=== PATIENT | male | born 1960 | race Caucasian/White ===

== ENCOUNTER 2024-11-17 19:30 | Emergency (ER) | payer MEDICARE, SELFPAY ==
[2024-11-17 19:48] VITALS: BP 170/91; PULSE 74; TEMP 36.7; O2SAT 97; BMI 37.5
--- NOTE | 2024-11-17 19:59 | XR_ITS ---
The [address] [address] Patient Name: LAM DREW MRN: [id number] date: 1960 Sex: M Assigned Patient Location: ER Current Patient Location: ED.MAIN Accession/Order Number: [id number] Exam Date: 11/17/2024 20:20 Report Date: 11/17/2024 20:49 At the request of: STEPHEN KAT Procedure: XR abdomen 1V EXAM: XR abdomen 1V TECHNIQUE: Supine view abdomen HISTORY: poss constipation COMPARISON: None. FINDINGS: No evidence for bowel obstruction. No evidence for free intraperitoneal air. No abnormal abdominal calcifications. Post surgical changes of lumbar spine. Spine stimulator noted. Surgical clips in the right upper quadrant. XR/XR abdomen 1V IMPRESSION: No acute abdominal pathology. Electronically authenticated by: BEVERLEY HANNA Date: 11/17/2024 20:49
--- NOTE | 2024-11-17 20:01 | ED.GENADUL1 ---
HPI HPI - General Adult General Chief complaint: Abdominal Pain Stated complaint: NO BM FOR 2 WEEKS Time Seen by Provider: 11/17/24 19:35 Source: patient Mode of arrival: walk-in History of Present Illness HPI narrative: 64-year-old male presents for constipation. He has not had a good bowel movement in 2 weeks. He had a knee replacement and was on some pain medicine but he is off of that now and has been for several days. The patient took magnesium citrate and has had some liquid stool. No fever or vomiting. Related Data Allergies Allergy/AdvReac Type Severity Reaction Status Date / Time saxagliptin Allergy Severe Unknown Verified 11/17/24 19:57 Opioid HPI Opioid Management Most Recent Opioid Data: No Data to Display Review of Systems ROS Narrative A ten point review of systems is negative except as noted above. PFSH PFSH Social History Little interest or pleasure in doing things: not at all Feeling down, depressed, or hopeless: not at all Exam Narrative Exam Narrative: Nurses note and vital signs reviewed and patient is not hypoxic. General: The patient appears in no apparent distress. Skin: Warm, dry, no pallor noted. There is no rash noted. Head: Normocephalic, atraumatic Eye: Normal conjunctiva, no drainage Ears, Nose, Mouth, and Throat: oral mucosa is moist. Nares patent. Cardiovascular: Regular Rate and Rhythm Respiratory: Patient is in no distress, no accessory muscle use, lungs are clear to auscultation, no wheezing, rales or rhonchi Back: non-tender GI: Obese, no tenderness. No masses Musculoskeletal: The patient has no evidence of calf tenderness, symmetrical pulses noted bilaterally Neurological: A&O, normal speech Psychiatric: Cooperative Constitutional Vital Signs, click to edit/add: Last Vital Signs Temp 98.1 F 11/17/24 19:48 Pulse 74 11/17/24 19:48 Resp 18 11/17/24 19:48 BP 170/91 H 11/17/24 19:48 Pulse Ox 97 11/17/24 19:48 O2 Del Method Room Air 11/17/24 19:48 Course Vital Signs Vital signs: Vital Signs Temperature 98.1 F 11/17/24 19:48 Pulse Rate 74 11/17/24 19:48 Respiratory Rate 18 11/17/24 19:48 Blood Pressure 170/91 H 11/17/24 19:48 Pulse Oximetry 97 11/17/24 19:48 Oxygen Delivery Method Room Air 11/17/24 19:48 Temperature 98.1 F 11/17/24 19:48 Pulse Rate 74 11/17/24 19:48 Respiratory Rate 18 11/17/24 19:48 Blood Pressure 170/91 H 11/17/24 19:48 Pulse Oximetry 97 11/17/24 19:48 Oxygen Delivery Method Room Air 11/17/24 19:48 Medical Decision Making MDM Narrative Medical decision making narrative: X-ray shows no impaction or constipation. He was reassured and is able to be discharged home. Treatment diagnosis and follow-up were discussed with the patient Differential Diagnosis Differential Diagnosis: Constipation, impaction Imaging Data Abdominal x-ray: Radiologist's impression: ITS Impressions Abdomen X-Ray 11/17/24 19:59 IMPRESSION: No acute abdominal pathology. Electronically authenticated by: BEVERLEY HANNA Date: 11/17/2024 20:49 Discharge Plan Discharge Chief Complaint: Abdominal Pain Clinical Impression: No problem, feared complaint unfounded Patient Disposition: Home, Self-Care Time of Disposition Decision: 21:22 Condition: Good Mode of Transportation: Private Vehicle Print Language: Croatian Referrals: DASHA REED [Primary Care Provider] - 1 week
--- NOTE | 2024-11-17 21:37 | PC.NURSE ---
Had knee surgery a month ago, has not been eating much since the surgery, states he has not had a bowel movement in about 2 weeks and has abdominal pain and bloating
== END 2024-11-17 21:30 | disposition home or self-care (01) ==
PROVIDERS: Emergency Provider Emergency Medicine; PCP Family Medicine
DX: Z71.1 Person with feared health complaint in whom no diagnosis is made (principal)
CPT/HCPCS: 74018; 99283

== ENCOUNTER 2024-12-14 12:40 | Emergency (ER) | payer OTHER, SELFPAY ==
[2024-12-14 12:53] VITALS: BP 157/92; PULSE 78; TEMP 37.1; O2SAT 98; BMI 36.7
[2024-12-14 12:59] LABS: Glucometer 225 mg/dL (74-106)
--- NOTE | 2024-12-14 13:52 | ED.RECABL1 ---
HPI - Recheck/Abnormal Lab/Rx General Chief Complaint: Urogenital-Male Stated Complaint: HYPERGLYCEMIA Time Seen by Provider: 12/14/24 13:45 Source: patient Mode of arrival: walk-in History of Present Illness HPI narrative: 64 year old male presents to the ED for hyperglycemia. States his blood sugar was 360 at home. He has been taking oral steroids for an upper respiratory infection; he has one day left. He was advised to come to the ED by his pcp for evaluation. [facility] to [facility] as needed. He has been on insulin in the past. He is afraid his BS will increase to 800 which it has done in the past with steroids. Denies fever, chills, dizziness, CP, SOB. Denies abd pain, N/V/D. Denies urinary frequency, urgency. Related Data Allergies Allergy/AdvReac Type Severity Reaction Status Date / Time saxagliptin Allergy Severe Unknown Verified 11/17/24 19:57 Review of Systems ROS Ears, nose, mouth, and throat Denies: throat pain or neck pain Cardiovascular Denies: chest pain Respiratory Denies: shortness of breath Gastrointestinal Denies: abdominal pain, nausea, vomiting or diarrhea Genitourinary Denies: painful urination, urinary frequency, urinary urgency or blood in urine Musculoskeletal Denies: back pain or neck pain Integumentary/Breast Denies: rash Neurological Denies: headache, numbness in extremities, weakness in extremities or dizziness PFSH PFSH Social History Little interest or pleasure in doing things: not at all Feeling down, depressed, or hopeless: not at all Exam Constitutional Vital Signs, click to edit/add: Last Vital Signs Temp 98.7 F 12/14/24 12:53 Pulse 78 12/14/24 12:53 Resp 18 12/14/24 12:53 BP 157/92 H 12/14/24 12:53 Pulse Ox 98 12/14/24 12:53 O2 Del Method Room Air 12/14/24 12:53 Common normals: no apparent distress and oriented x3 General appearance: cooperative Eye Common normals: conjunctivae normal and no scleral icterus Neck & C-Spine Common normals: supple Chest Chest: symmetrical chest wall rise Respiratory Common normals: normal respiratory effort and clear to auscultation bilaterally Effort & inspection: able to speak in complete sentences and symmetric chest movement Cardio Common normals: regular rate and regular rhythm Neuro Common normals: oriented x3 and moves all extremities Sensorium/orientation: awake and alert Speech: speech normal Gait (neuro): normal gait Course Vital Signs Vital signs: Vital Signs Temperature 98.7 F 12/14/24 12:53 Pulse Rate 78 12/14/24 12:53 Respiratory Rate 18 12/14/24 12:53 Blood Pressure 157/92 H 12/14/24 12:53 Pulse Oximetry 98 12/14/24 12:53 Oxygen Delivery Method Room Air 12/14/24 12:53 Temperature 98.7 F 12/14/24 12:53 Pulse Rate 78 12/14/24 12:53 Respiratory Rate 18 12/14/24 12:53 Blood Pressure 157/92 H 12/14/24 12:53 Pulse Oximetry 98 12/14/24 12:53 Oxygen Delivery Method Room Air 12/14/24 12:53 MDM - Recheck/Abnormal Lab/Rx MDM Narrative Medical decision making narrative: Blood sugar was 225. The patient requested to rule out a UTI; urinalysis showed no evidence of infection. Findings were discussed. He has one day of his oral steroid prescription left; it was a 5-day course. Follow up with pcp for a recheck, further evaluation and treatment. Medical Records Attestation: I reviewed the patient's medical records. Lab Data Attestation: I reviewed the patient's lab results. Labs: Lab Results 12/14/24 12/14/24 12/14/24 Range/Units 12:57 12:59 14:05 WBC 3.3 L (4.0-11.0) 10^3/uL RBC 4.62 L (4.70-6.10) 10^6/uL Hgb 12.9 L (14.0-18.0) g/dL Hct 40.9 L (42.0-54.0) % MCV 88.5 (80.0-94.0) fL MCH 27.9 (25.9-34.0) pg MCHC 31.5 (29.9-35.2) g/dL RDW 14.5 (11.0-15.0) % Plt Count 200 (150-450) 10^3/uL MPV 10.1 (9.5-13.5) fL Neut % (Auto) 83.6 H (43.0-75.0) % Lymph % (Auto) 9.7 L (20.5-60.0) % [place] % (Auto) 5.5 (1.7-12.0) % Eos % (Auto) 0.3 L (0.9-7.0) % Baso % (Auto) 0.3 (0.2-2.0) % Neut # (Auto) 2.8 (1.4-6.5) 10^3/uL Lymph # (Auto) 0.3 L (1.2-3.8) 10^3/uL [place] # (Auto) 0.2 L (0.3-0.8) 10^3/uL Eos # (Auto) 0.0 (0.0-0.7) 10^3/uL Baso # (Auto) 0.0 (0.0-0.1) 10^3/uL Abs Immat Gran (auto) 0.02 (0.00-0.03) 10^3/uL Imm/Tot Granulo (auto) 0.6 H (0.0-0.5) % Sodium 138 (136-145) mmol/L Potassium 4.3 (3.5-5.1) mmol/L Chloride 98 (98-107) mmol/L Carbon Dioxide 29.5 (21.0-32.0) mmol/L Anion Gap 14.8 BUN 26.0 H (7.0-18.0) mg/dL Creatinine 1.27 (0.70-1.30) mg/dL Est GFR ( Amer) >60 (>=60 mL/min/1.73m^2) Est GFR (Non-Af Amer) 57 L (>=60 mL/min/1.73m^2) BUN/Creatinine Ratio 20.5 Glucose 222 H (74-106) mg/dL Calcium 9.1 (8.5-10.1) mg/dL Urine Color Lt. yellow (YELLOW) Urine Clarity Clear (CLEAR) Urine pH 7.0 (5.0-9.0) Ur Specific [place] 1.010 (1.005-1.025) Urine Protein Negative (NEG/TRACE) mg/dL Urine Glucose (UA) >=1000 A (NEGATIVE) mg/dL Urine Ketones Negative (NEGATIVE) mg/dL Urine Occult Blood Negative (NEGATIVE) Urine Nitrite Negative (NEGATIVE) Urine Bilirubin Negative (NEGATIVE) Urine Urobilinogen 0.2 (0.2-1.0) EU/dL Ur Leukocyte Esterase Negative (NEGATIVE) POC Glucose 225 H (74-106) mg/dL Discharge Plan Discharge Chief Complaint: Urogenital-Male Clinical Impression: Hyperglycemia Patient Disposition: Home, Self-Care Time of Disposition Decision: 15:40 Condition: Good Mode of Transportation: Private Vehicle Print Language: Croatian Instructions: Diabetic Hyperglycemia (ED) Referrals: DASHA REED [Primary Care Provider] - 1 week Discharge Date/Time: 12/14/24 15:47
[2024-12-14 14:22] LABS: Basophils Percent Auto 0.3 % (0.2-2.0); Eosinophils Percent Auto 0.3 % (0.9-7.0); Hematocrit 40.9 % (42.0-54.0); Hemoglobin 12.9 g/dL (14.0-18.0); Immature Granulocytes Abs Auto 0.02 10^3/uL (0.00-0.03); Immature Granulocytes Pct Auto 0.6 % (0.0-0.5); Lymphocytes Absolute Auto 0.3 10^3/uL (1.2-3.8); Lymphocytes Percent Auto 9.7 % (20.5-60.0); Mean Corpuscular HGB Conc 31.5 g/dL (29.9-35.2); Mean Corpuscular Hemoglobin 27.9 pg (25.9-34.0); Mean Corpuscular Volume 88.5 fL (80.0-94.0); Mean Platelet Volume 10.1 fL (9.5-13.5); Monocytes Absolute Auto 0.2 10^3/uL (0.3-0.8); Monocytes Percent Auto 5.5 % (1.7-12.0); Neutrophils Absolute Auto 2.8 10^3/uL (1.4-6.5); Neutrophils Percent Auto 83.6 % (43.0-75.0); Platelet Count 200 10^3/uL (150-450); Red Blood Count 4.62 10^6/uL (4.70-6.10); Red Cell Distribution Width 14.5 % (11.0-15.0); White Blood Count 3.3 10^3/uL (4.0-11.0)
[2024-12-14 14:33] LABS: Anion Gap 14.8; BUN Creatinine Ratio 20.5; Calcium 9.1 mg/dL (8.5-10.1); Carbon Dioxide 29.5 mmol/L (21.0-32.0); Chloride 98 mmol/L (98-107); Estimated GFR (African America >60 (>=60 mL/min/1.73m^2); Estimated GFR (Non-African Ame 57 (>=60 mL/min/1.73m^2); Glucose 222 mg/dL (74-106); Potassium 4.3 mmol/L (3.5-5.1); Sodium 138 mmol/L (136-145)
[2024-12-14 14:33] LABS: Bilirubin Urine NEGATIVE (NEGATIVE); Blood Urine NEGATIVE (NEGATIVE); Clarity Urine CLEAR (CLEAR); Color Urine LT. YELLOW (YELLOW); Glucose Urine UA >=1000 mg/dL (NEGATIVE); Ketones Urine NEGATIVE (NEGATIVE); Leukocyte Esterase Urine NEGATIVE (NEGATIVE); Nitrite Urine NEGATIVE (NEGATIVE); Protein Urine NEGATIVE (NEG/TRACE); Urobilinogen Urine 0.2 EU/dL (0.2-1.0)
[2024-12-14 14:35] LABS: Urine Microscopic Indicated NO
== END 2024-12-14 15:47 | disposition home or self-care (01) ==
PROVIDERS: Nurse Practitioner Family; Emergency Provider Emergency Medicine; PCP Family Medicine
DX: R73.9 Hyperglycemia, unspecified (principal)
CPT/HCPCS: 36415; 80048; 81003; 82948; 85025; 99284

== ENCOUNTER 2025-01-06 13:54 | Emergency (ER) | payer OTHER, SELFPAY ==
[2025-01-06 13:57] VITALS: BP 169/95; PULSE 102; TEMP 36.6; O2SAT 96; BMI 36.7
--- NOTE | 2025-01-06 14:04 | ED.EXTPRO1 ---
HPI - Extremity Problem General Chief complaint: Extremity Problem, Nontraumatic Stated complaint: LOWER EXTREMITY PAIN/SWELLING Time Seen by Provider: 01/06/25 14:00 Source: patient and family () Mode of arrival: walk-in Limitations: no limitations History of Present Illness HPI Narrative: 64-year-old male presents to the emergency department with with concern about pain and swelling to his right calf. History of knee replacement surgery in October. Patient worried about clot. He is on Xarelto. Notes associated swelling, tenderness, hard spot, within the calf. Denies any chest pain, shortness of breath. Quality:?As above Severity:?Moderate Timing:?As above, constant, over the past few days Context: Normal setting and activity? Modifying factors:?Pain worse with palpation Associated symptoms: As above Related Data Home Medications ?Medication ?Instructions ?Recorded ?Confirmed allopurinol 100 mg tablet 100 mg PO DAILY 01/06/25 01/06/25 amlodipine 10 mg tablet 10 mg PO DAILY 01/06/25 01/06/25 carvedilol 6.25 mg tablet 6.25 mg PO BID 01/06/25 01/06/25 flecainide 150 mg tablet 150 mg PO Q12H 01/06/25 01/06/25 furosemide 40 mg tablet 40 mg PO DAILY 01/06/25 01/06/25 hydralazine 25 mg tablet 25 mg PO DAILY 01/06/25 01/06/25 lisinopril 20 mg tablet 20 mg PO BID 01/06/25 01/06/25 morphine 01/06/25 pantoprazole 40 mg tablet,delayed 40 mg PO BID 01/06/25 01/06/25 release rivaroxaban 20 mg tablet (Xarelto) 20 mg PO DAILY 01/06/25 01/06/25 rosuvastatin 20 mg tablet 20 mg PO DAILY 01/06/25 01/06/25 spironolactone 25 mg tablet 25 mg PO BID 01/06/25 01/06/25 Allergies Allergy/AdvReac Type Severity Reaction Status Date / Time saxagliptin Allergy Severe Unknown Verified 01/06/25 14:00 Review of Systems ROS Narrative CONST: Denies activity change, weakness MS: Denies arthralgias.? Denies joint swelling. + myalgias, Swelling Chest/lungs: Denies chest pain, shortness of breath SKIN: Denies color change, wound NEURO: Denies numbness, paresthesias, weakness PFSH PFSH Social History Little interest or pleasure in doing things: not at all Feeling down, depressed, or hopeless: not at all Exam Narrative Exam Narrative: Vital signs noted Nurses notes reviewed CONST: Nontoxic, well appearing, well nourished, in no distress.? HENT: normocephalic, atraumatic. CV: 2+ palpable right DP pulse MS: Right calf: +tenderness,swelling to the posterior calf.? No tenderness to the foot, ankle, knee, thigh.? No discoloration, crepitus, deformity, instability, warmth.? Active ROM is full with dorsiflexion, plantarflexion .? Strength 5/5 NEURO: Sensory intact throughout and distal to the injury SKIN: intact, warm, dry.? No wound PSYCHIATRIC: normal mood, affect Constitutional Vital Signs, click to edit/add: Last Vital Signs Temp 97.9 F 01/06/25 13:57 Pulse 102 H 01/06/25 13:57 Resp 01/06/25 13:57 BP 169/95 H 01/06/25 13:57 Pulse Ox 96 01/06/25 13:57 Course Reevaluation(s) Reevaluation #1: Discussed with patient and results, plan, and disposition. They are agreeable with plan Time: 15:15 Vital Signs Vital signs: Vital Signs Temperature 97.9 F 01/06/25 13:57 Pulse Rate 102 H 01/06/25 13:57 Respiratory Rate 01/06/25 13:57 Blood Pressure 169/95 H 01/06/25 13:57 Pulse Oximetry 96 01/06/25 13:57 Temperature 97.9 F 01/06/25 13:57 Pulse Rate 102 H 01/06/25 13:57 Respiratory Rate 01/06/25 13:57 Blood Pressure 169/95 H 01/06/25 13:57 Pulse Oximetry 96 01/06/25 13:57 MDM - Extremity (Nontraumatic) MDM Narrative Medical decision making narrative: This is a pleasant 64-year-old male who presents to the emergency department for evaluation of right calf pain and swelling On arrival, afebrile, vital signs are stable Exam, nontoxic, well-appearing patient in no distress. There is some firmness, mild swelling, tenderness posterior calf when compared to the left. 2+ palpable dorsalis pedal pulses are present. No changes in skin color, erythema, bruising, cyanosis. Ultrasound imaging, per radiologist reveals no evidence of DVT. Favor musculoskeletal calf pain, dependent edema. Patient is status post knee surgery. Healing knee could be causing some of fluid to be dependent as swelling worsens when he is standing and improves when he has his legs up. DVT less likely based on imaging History and Record Review Discussion with independent historian: Re-Evaluation See ED course Disposition ? The patient was discharged. Plan: Patient will be discharged to home.? Condition at time of disposition: stable .? Advised to follow up with primary provider. Advised to return for any worsening and/or development of new, concerning signs or symptoms PLEASE NOTE: Portions of the medical record may have been produced using electronic material inspector and may contain errors with respect to translation of words which may not have been identified prior to finalization of the chart. Imaging Data Ultrasound right lower extremity: Attestation: I have reviewed the pertinent imaging results. (No evidence of DVT per radiologist) Discharge Plan Discharge Chief Complaint: Extremity Problem, Nontraumatic Clinical Impression: Pain of right calf, Swelling of calf Patient Disposition: Home, Self-Care Time of Disposition Decision: 15:18 Condition: Good Mode of Transportation: Private Vehicle Prescriptions / Home Meds: No Action morphine Rx Instructions: pain pump carvedilol 6.25 mg tablet 6.25 mg PO BID Rx Instructions: must administer with a meal/food spironolactone 25 mg tablet 25 mg PO BID pantoprazole 40 mg tablet,delayed release (DR/EC) 40 mg PO BID lisinopril 20 mg tablet 20 mg PO BID flecainide 150 mg tablet 150 mg PO Q12H allopurinol 100 mg tablet 100 mg PO DAILY amlodipine 10 mg tablet 10 mg PO DAILY furosemide 40 mg tablet 40 mg PO DAILY rosuvastatin 20 mg tablet 20 mg PO DAILY hydralazine 25 mg tablet 25 mg PO DAILY Xarelto 20 mg tablet 20 mg PO DAILY Rx Instructions: must administer with evening meal Print Language: Taiwanese Instructions: Leg Pain (ED) Referrals: DASHA REED [Primary Care Provider] - 1 week Discharge Date/Time: 01/06/25 15:52
== END 2025-01-06 15:52 | disposition home or self-care (01) ==
PROVIDERS: Emergency Provider Emergency Medicine; PCP Family Medicine
DX: M79.89 Other specified soft tissue disorders (principal); M79.661 Pain in right lower leg; Z79.01 Long term (current) use of anticoagulants; Z96.659 Presence of unspecified artificial knee joint
CPT/HCPCS: 93971; 99284

== ENCOUNTER 2025-03-13 23:52 | Emergency (ER) | payer OTHER, SELFPAY ==
--- NOTE | 2025-03-14 04:07 | ED_ITS ---
HPI HPI - General Adult General Stated complaint: SHOOTING PAIN DOWN ARM History of Present Illness MD complaint: Unfortunately this patient left without being seen by me. Related Data Home Medications ?Medication ?Instructions ?Recorded ?Confirmed allopurinol 100 mg tablet 100 mg PO DAILY 01/06/25 amlodipine 10 mg tablet 10 mg PO DAILY 01/06/2512/12 carvedilol 6.25 mg tablet 6.25 mg PO BID 01/06/2512/12 flecainide 150 mg tablet 150 mg PO Q12H 01/06/2512/12 furosemide 40 mg tablet 40 mg PO DAILY 01/06/2512/12 hydralazine 25 mg tablet 25 mg PO DAILY 01/06/2512/12 lisinopril 20 mg tablet 20 mg PO BID 01/06/25 morphine 01/06/25 pantoprazole 40 mg tablet,delayed 40 mg PO BID 5 01/06/25 release rivaroxaban 20 mg tablet (Xarelto) 20 mg PO DAILY 12/1201/06/25 rosuvastatin 20 mg tablet 20 mg PO DAILY 01/06/2512/12 spironolactone 25 mg tablet 25 mg PO BID 01/06/2512/12 Allergies Allergy/AdvReac Type Severity Reaction Status Date / Time saxagliptin Allergy Severe Unknown Verified 01/06/25 14:00 [facility] Social History Little interest or pleasure in doing things: not at all Feeling down, depressed, or hopeless: not at all Discharge Plan Discharge Patient Disposition: Left Without Being Seen Discharge Date/Time: 03/14/25 00:08
--- NOTE | 2025-03-14 04:07 | ED.GENADUL1 ---
HPI HPI - General Adult General Stated complaint: SHOOTING PAIN DOWN ARM History of Present Illness MD complaint: Unfortunately this patient left without being seen by me. Related Data Home Medications ?Medication ?Instructions ?Recorded ?Confirmed allopurinol 100 mg tablet 100 mg PO DAILY 01/06/25 01/06/25 amlodipine 10 mg tablet 10 mg PO DAILY 01/06/25 01/06/25 carvedilol 6.25 mg tablet 6.25 mg PO BID 01/06/25 01/06/25 flecainide 150 mg tablet 150 mg PO Q12H 01/06/25 01/06/25 furosemide 40 mg tablet 40 mg PO DAILY 01/06/25 01/06/25 hydralazine 25 mg tablet 25 mg PO DAILY 01/06/25 01/06/25 lisinopril 20 mg tablet 20 mg PO BID 01/06/25 01/06/25 morphine 01/06/25 pantoprazole 40 mg tablet,delayed 40 mg PO BID 01/06/25 01/06/25 release rivaroxaban 20 mg tablet (Xarelto) 20 mg PO DAILY 01/06/25 01/06/25 rosuvastatin 20 mg tablet 20 mg PO DAILY 01/06/25 01/06/25 spironolactone 25 mg tablet 25 mg PO BID 01/06/25 01/06/25 Allergies Allergy/AdvReac Type Severity Reaction Status Date / Time saxagliptin Allergy Severe Unknown Verified 01/06/25 14:00 [facility] Social History Little interest or pleasure in doing things: not at all Feeling down, depressed, or hopeless: not at all Discharge Plan Discharge Patient Disposition: Left Without Being Seen Discharge Date/Time: 03/14/25 00:08
== END 2025-03-14 00:08 | disposition left against medical advice (07) ==
PROVIDERS: Emergency Provider Emergency Medicine; PCP Family Medicine
DX: Z53.21 Procedure and treatment not carried out due to patient leaving prior to being seen by health care provider (principal)